=== PATIENT | male | born 1970 | race Caucasian/White ===

== ENCOUNTER 2019-01-25 11:07 | Emergency (ER) | payer BC ==
[~2019-01-25] VITALS: Ht 185.4 cm; Wt 106.6 kg
[~2019-01-25 11:07] MED LIST: AMBEREN; BACITRACIN15 GM TP; CLINDAMYCIN HC300 MG PO; MECLIZINE 25 MG25 M1 PO; NOHOMEMEDICATIONS; PEPCID40 MG PO; ZPAK PO
[2019-01-25] MEDS ORDERED: KETOCONAZOLE120 ML TOP (11:13)
[2019-01-25] MEDS ORDERED: BACTRIM DS TAB1 EAC1 PO (11:14)
[2019-01-25 12:18] VITALS: BP 161/80
== END 2019-01-25 12:19 | disposition home or self-care (01) ==
LOC: ER 11:07
DX: S40.872D Other superficial bite of left upper arm, subsequent encounter (principal); Z88.0 Allergy status to penicillin; Z79.899 Other long term (current) drug therapy; W54.0XXD Bitten by dog, subsequent encounter

== ENCOUNTER 2019-09-19 11:05 | Emergency (ER) | payer BC ==
[~2019-09-19] VITALS: Ht 185.4 cm; Wt 108.9 kg
--- NOTE | ~2019-09-19 | EKG ---
[facility] [place] [address] ELECTROCARDIOGRAM REPORT Name: CLAUDIA MORRIS Room #: PRE M.R.#: [id number] Admission: Attend Phys: Discharge: Date of : 74 Report #: [id number] THIS REPORT FOR: cc: Alba Bocanegra Diane C. 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
[~2019-09-19 11:05] MED LIST changes: +BACTRIM DS TAB1 EAC1 PO; +KETOCONAZOLE120 ML TOP
[2019-09-19 12:14] LABS: ABSOLUTE NEUTROPHILS 3.4 thou/uL (1.4-8.2); BASOPHILS 0.5 % (0.0-2.0); EOSINOPHILS 0.6 % (0.0-3.0); HEMOGLOBIN 16.9 gm/dL (14.0-18.0); LYMPHOCYTES 14.8 % (24.0-44.0); MCH 31.7 pg (26.0-34.0); MCHC 35.2 g/dL (28.0-37.0); MCV 90.2 fL (80.0-100.0); MONOCYTES 9.3 % (1.0-8.0); PLATELET COUNT 216 thou/uL (150-400); POLYS 74.8 % (36.0-66.0); RBC 5.32 mil/uL (4.50-6.00); RDW 13.2 % (10.5-14.5); WBC 4.6 thou/uL (4.0-11.0)
[2019-09-19 12:16] LABS: ANION GAP 10 mmol/L (7-16); BUN 11 mg/dL (7-18); CALCIUM 9.8 mg/dL (8.5-10.1); CHLORIDE 102 mmol/L (98-107); CO2 28 mmol/L (21-32); CREATININE 1.3 mg/dL (0.7-1.3); GLUCOSE 105 mg/dL (74-106); POTASSIUM 4.2 mmol/L (3.5-5.1); SODIUM 140 mmol/L (136-145)
[2019-09-19 12:26] LABS: ALBUMIN 4.2 g/dL (3.4-5.0); SGOT 18 U/L (15-37); SGPT 15 U/L (30-65); TOTAL BILIRUBIN 0.6 mg/dL (0.2-1.0); TOTAL PROTEIN 7.9 g/dL (6.4-8.2); TROPONIN-I <0.06 ng/mL (<0.06)
[2019-09-19] MEDS ORDERED: VENTOLIN HFA 1818 GM INH (13:33)
[2019-09-19 15:08] VITALS: BP 135/80
== END 2019-09-19 15:10 | disposition home or self-care (01) ==
LOC: ER 11:05
PROVIDERS: Physician Assistant
DX: R06.02 Shortness of breath (principal); Z20.828 Contact with and (suspected) exposure to other viral communicable diseases; Z88.0 Allergy status to penicillin; Z79.899 Other long term (current) drug therapy

== ENCOUNTER 2021-02-18 18:42 | Emergency (ER) | payer BC ==
[~2021-02-18] VITALS: Ht 185.4 cm; Wt 104.3 kg
--- NOTE | ~2021-02-18 | EKG ---
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
[~2021-02-18 18:42] MED LIST changes: +VENTOLIN HFA 1818 GM INH
[2021-02-18 19:36] LABS: ABSOLUTE NEUTROPHILS 3.7 thou/uL (1.4-8.2); BASOPHILS 0.5 % (0.0-2.0); EOSINOPHILS 2.1 % (0.0-3.0); HEMATOCRIT 46.1 % (42.0-52.0); HEMOGLOBIN 15.9 gm/dL (14.0-18.0); LYMPHOCYTES 21.2 % (24.0-44.0); MCH 31.5 pg (26.0-34.0); MCHC 34.6 g/dL (28.0-37.0); MONOCYTES 10.7 % (1.0-8.0); PLATELET COUNT 231 thou/uL (150-400); POLYS 65.5 % (36.0-66.0); RBC 5.07 mil/uL (4.50-6.00); RDW 13.4 % (10.5-14.5); WBC 5.6 thou/uL (4.0-11.0)
[2021-02-18 19:50] LABS: POTASSIUM 3.6 mmol/L (3.5-5.1)
[2021-02-18 20:04] LABS: ALBUMIN 3.9 g/dL (3.4-5.0); MAGNESIUM 1.8 mg/dL (1.8-2.4); TOTAL BILIRUBIN 0.2 mg/dL (0.2-1.0); TOTAL PROTEIN 7.6 g/dL (6.4-8.2)
[2021-02-18 20:30] VITALS: BP 160/87
== END 2021-02-18 20:30 | disposition home or self-care (01) ==
LOC: ER 18:42
PROVIDERS: Emergency Medicine
DX: R00.2 Palpitations (principal); Z88.0 Allergy status to penicillin; E78.5 Hyperlipidemia, unspecified; Z79.51 Long term (current) use of inhaled steroids; Z79.899 Other long term (current) drug therapy

== ENCOUNTER 2021-02-23 21:35 | Emergency (ER) | payer BC ==
[~2021-02-23] VITALS: Ht 185.4 cm; Wt 105.2 kg
[2021-02-23 22:16] LABS: HEMATOCRIT 49.8 % (42.0-52.0); HEMOGLOBIN 17.1 gm/dL (14.0-18.0); MCH 31.5 pg (26.0-34.0); MCHC 34.4 g/dL (28.0-37.0); MCV 91.6 fL (80.0-100.0); PLATELET COUNT 299 thou/uL (150-400); RBC 5.43 mil/uL (4.50-6.00); RDW 13.4 % (10.5-14.5); WBC 8.3 thou/uL (4.0-11.0)
[2021-02-23 22:27] LABS: CALCIUM 9.2 mg/dL (8.5-10.1); CREATININE 1.1 mg/dL (0.7-1.3)
[2021-02-23 22:35] LABS: POTASSIUM 2.9 mmol/L (3.5-5.1)
[2021-02-23 23:19] LABS: ABSOLUTE NEUTROPHILS 5.1 thou/uL (1.4-8.2)
[2021-02-23 23:20] LABS: ANISOCYTOSIS 1+; PLATELET ESTIMATE NORMAL; POIKILOCYTOSIS 1+
[2021-02-23] MEDS ORDERED: TOPROL XL25 MG PO (23:32)
[2021-02-23] MEDS ORDERED: KLOR-CON M2020 MEQ PO (23:32)
[2021-02-24 00:28] VITALS: BP 112/77
--- NOTE | 2021-02-24 08:44 | EKG ---
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 : 1970 Requested By: Magaly Sierra Order Number: [id number] MD: Dakota Cota Measurements Intervals [place] Rate: 173 P: 0 [place]: 65 QRS: 157 QRSD: 104 T: 11 QT: 276 QTc: 469 Interpretive Statements Supraventricular tachycardia Consider right ventricular hypertrophy Compared to ECG 02/18/2021 18:47:44 Sinus rhythm no longer present Right-axis deviation no longer present Electronically Signed On 02-24-2021 8:44:33 INFORMATION RECEPTIONIST by Dakota Cota [email or web address] <ELECTRONICALLY SIGNED> By: Dakota Cota MD, [facility] 02/24/21 0844 [id number] 44 Dakota Cota MD, FACC /EPI
--- NOTE | 2021-02-24 08:45 | EKG ---
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 : 1970 Requested By: Jose Miguel Neely Order Number: [id number] MD: Dakota Cota Measurements Intervals [place] Rate: 82 P: 46 [place]: 208 QRS: 101 QRSD: 114 T: 52 QT: 387 QTc: 452 Interpretive Statements Sinus rhythm Borderline prolonged [place] interval IRBBB and LPFB Artifact in lead(s) V2 and baseline wander in lead(s) V2 Compared to ECG 02/23/2021 21:45:04 Left posterior fascicular block now present Incomplete right bundle-branch block now present Supraventricular tachycardia no longer present Electronically Signed On 02-24-2021 8:45:02 SHELLFISH WE[employer]HER by Dakota Cota [email or web address] <ELECTRONICALLY SIGNED> By: Dakota Cota MD, [facility] 02/24/21 0845 2247 Dakota Cota MD, [facility] /EPI
== END 2021-02-24 00:38 | disposition home or self-care (01) ==
LOC: ER 21:35
PROVIDERS: Emergency Medicine
DX: I47.1 Supraventricular tachycardia (principal); Z20.822 Contact with and (suspected) exposure to COVID-19; Z79.51 Long term (current) use of inhaled steroids; Z79.899 Other long term (current) drug therapy